=== PATIENT | female | born 1995 | race Caucasian/White ===

== ENCOUNTER 2023-11-04 15:50 | Emergency (ER) | payer OTHER, SELFPAY ==
[2023-11-04 15:55] VITALS: BP 132/90; PULSE 92; TEMP 36.8; O2SAT 98
--- NOTE | 2023-11-04 16:13 | ED.LOWEXI1 ---
Documented by User: VALARIE Baig 11/04/23 16:19 HPI HPI - Extremity Injury (Lower) General Chief Complaint: Extremity Injury, Lower Stated Complaint: lower extremity injury Time Seen by Provider: 11/04/23 15:51 Source: patient Mode of arrival: walk-in Limitations: no limitations History of Present Illness HPI Narrative: Patient is a 28-year-old female who presents to the emergency department for right foot and ankle injury that occurred during the [place]. She states she went down several stairs outside her home, and twisted her right foot. She complains of pain over the dorsal lateral aspect of the right foot into the ankle. She came directly to the emergency department. No medications taken prior to arrival. She denies any concern for . She had no other associated injuries. Related Data Previous Rx's ?Medication ?Instructions ?Recorded naproxen sodium 550 mg tablet 550 mg PO BID PRN pain #10 tabs 11/04/23 Allergies Allergy/AdvReac Type Severity Reaction Status Date / Time No Known Drug Allergies Allergy Verified 11/04/23 15:58 Opioid HPI Opioid Management Most Recent Pain and Opioid Data: Last Pain Scale 7 11/04/23 16:17 Last MAR Pain Assessment 11/04/23 16:17 Review of Systems ROS Constitutional Denies: fever or chills Ears, nose, mouth, and throat Denies: throat pain or nasal congestion Cardiovascular Denies: chest pain Respiratory Denies: shortness of breath or cough Gastrointestinal Denies: nausea or vomiting Musculoskeletal Denies: back pain Integumentary/Breast Denies: rash Neurological Denies: headache Hematologic/Lymphatic Denies: easy bruising or easy bleeding Exam Narrative Exam Narrative: Gen.: Awake, alert, in no distress Head: Normocephalic, atraumatic ENT: Moist mucous membranes Respiratory: No respiratory distress Extremities: Moves extremities equally, No swelling, ecchymosis or obvious deformity noted of the foot or ankle. Diffuse tenderness of the right lateral malleolus and right lateral foot. Limited flexion and extension of the toes due to pain. 2+ left DP pulse. Psych: Normal mood and affect Neuro: No focal neuro deficit Skin: Warm, dry, intact Constitutional Vital Signs, click to edit/add: Last Vital Signs Temp 98.2 F 11/04/23 15:55 Pulse 92 H 11/04/23 15:55 Resp 18 11/04/23 15:55 BP 132/90 11/04/23 15:55 Pulse Ox 98 11/04/23 15:55 O2 Del Method Room Air 11/04/23 15:55 Course Vital Signs Vital signs: Vital Signs Temperature 98.2 F 11/04/23 15:55 Pulse Rate 92 H 11/04/23 15:55 Respiratory Rate 18 11/04/23 15:55 Blood Pressure 132/90 11/04/23 15:55 Pulse Oximetry 98 11/04/23 15:55 Oxygen Delivery Method Room Air 11/04/23 15:55 Temperature 98.2 F 11/04/23 15:55 Pulse Rate 92 H 11/04/23 15:55 Respiratory Rate 18 11/04/23 15:55 Blood Pressure 132/90 11/04/23 15:55 Pulse Oximetry 98 11/04/23 15:55 Oxygen Delivery Method Room Air 11/04/23 15:55 MDM - Extremity Injury (Lower) MDM Narrative Medical decision making narrative: Raise of the right foot and ankle without acute process or fracture or dislocation. Patient placed in an Favio wrap, postop shoe and discharged home with anti-inflammatories. She is neurovascularly intact. Rest, ice, elevate.Follow-up with PCP and return to the ER if symptoms change or worsen Medical Records Attestation: I reviewed the patient's medical records. Imaging Data XR foot: Attestation: I personally reviewed and interpreted this imaging study as follows: (NAD) Discharge Plan Discharge Stand Alone Forms: Portal Instructions Chief Complaint: Extremity Injury, Lower Clinical Impression: Right foot sprain Patient Disposition: Home, Self-Care Time of Disposition Decision: 16:18 Condition: Good Mode of Transportation: Private Vehicle Prescriptions / Home Meds: New naproxen sodium 550 mg tablet 550 mg PO BID PRN (Reason: pain) Qty: 10 0RF Print Language: Puerto Rican Instructions: Foot Sprain (ED) Referrals: Physician,Non-Staff, MD [Primary Care Provider] - 1 week Discharge Date/Time: 11/04/23 16:34 Documented by User: Vince Padron 11/04/23 18:15 HPI HPI - Extremity Injury (Lower) General Chief Complaint: Extremity Injury, Lower Stated Complaint: lower extremity injury Time Seen by Provider: 11/04/23 15:51 Related Data Previous Rx's ?Medication ?Instructions ?Recorded naproxen sodium 550 mg tablet 550 mg PO BID PRN pain #10 tabs 11/04/23 Allergies Allergy/AdvReac Type Severity Reaction Status Date / Time No Known Drug Allergies Allergy Verified 11/04/23 15:58 Opioid HPI Opioid Management Most Recent Pain and Opioid Data: Last Pain Scale 7 11/04/23 16:17 Last MAR Pain Assessment 11/04/23 16:17 Exam Constitutional Vital Signs, click to edit/add: Last Vital Signs Temp 98.2 F 11/04/23 15:55 Pulse 92 H 11/04/23 15:55 Resp 18 11/04/23 15:55 BP 132/90 11/04/23 15:55 Pulse Ox 98 11/04/23 15:55 O2 Del Method Room Air 11/04/23 15:55 Course Vital Signs Vital signs: Vital Signs Temperature 98.2 F 11/04/23 15:55 Pulse Rate 92 H 11/04/23 15:55 Respiratory Rate 18 11/04/23 15:55 Blood Pressure 132/90 11/04/23 15:55 Pulse Oximetry 98 11/04/23 15:55 Oxygen Delivery Method Room Air 11/04/23 15:55 Temperature 98.2 F 11/04/23 15:55 Pulse Rate 92 H 11/04/23 15:55 Respiratory Rate 18 11/04/23 15:55 Blood Pressure 132/90 11/04/23 15:55 Pulse Oximetry 98 11/04/23 15:55 Oxygen Delivery Method Room Air 11/04/23 15:55 MDM - Extremity Injury (Lower) MDM Narrative Medical decision making narrative: Raise of the right foot and ankle without acute process or fracture or dislocation. Patient placed in an Favio wrap, postop shoe and discharged home with anti-inflammatories. She is neurovascularly intact. Rest, ice, elevate.Follow-up with PCP and return to the ER if symptoms change or worsen For this patient encounter I reviewed the mid-level provider?s documentation, medical decision-making and treatment plan, and I personally spent time with this patient. Shared APC visit, physician attestation: Snd-fnyr-ol-face: The visit was performed by both a physician and an APC. I performed all aspects of MDM as documented. - DO Wanda Discharge Plan Discharge Stand Alone Forms: Portal Instructions Chief Complaint: Extremity Injury, Lower Clinical Impression: Right foot sprain Patient Disposition: Home, Self-Care Time of Disposition Decision: 16:18 Condition: Good Mode of Transportation: Private Vehicle Prescriptions / Home Meds: New naproxen sodium 550 mg tablet 550 mg PO BID PRN (Reason: pain) Qty: 10 0RF Print Language: Puerto Rican Instructions: Foot Sprain (ED) Referrals: Physician,Non-Staff, MD [Primary Care Provider] - 1 week Discharge Date/Time: 11/04/23 16:34
--- NOTE | 2023-11-04 16:16 | XR_ITS ---
The [address] [address] Patient Name: MARISA SHANE MRN: [id number] date: 1995 Sex: F Assigned Patient Location: ER Current Patient Location: ED.MAIN Accession/Order Number: [id number] Exam Date: 11/04/2023 16:10 Report Date: 11/04/2023 16:31 At the request of: CAMRYN DOWNS Procedure: XR foot RT min 3V EXAM: XR foot RT min 3V, XR ankle RT min 3V HISTORY: fall COMPARISON: None. TECHNIQUE: 3 views of the right foot and ankle FINDINGS: There is no acute fracture or dislocation. The talar dome is congruent. Ankle mortise is normal. Soft tissues are unremarkable. XR/XR foot RT min 3V IMPRESSION: No acute process Electronically authenticated by: ARABELLA LARA Date: 11/04/2023 16:31
--- NOTE | 2023-11-04 16:16 | XR_ITS ---
The [address] [address] Patient Name: MARISA SHANE MRN: [id number] date: 1995 Sex: F Assigned Patient Location: ER Current Patient Location: ED.MAIN Accession/Order Number: [id number] Exam Date: 11/04/2023 16:10 Report Date: 11/04/2023 16:31 At the request of: CAMRYN DOWNS Procedure: XR ankle RT min 3V EXAM: XR foot RT min 3V, XR ankle RT min 3V HISTORY: fall COMPARISON: None. TECHNIQUE: 3 views of the right foot and ankle FINDINGS: There is no acute fracture or dislocation. The talar dome is congruent. Ankle mortise is normal. Soft tissues are unremarkable. XR/XR ankle RT min 3V IMPRESSION: No acute process Electronically authenticated by: ARABELLA LARA Date: 11/04/2023 16:31
[2023-11-04] MEDS: HYDROCODONE/ACET 5-325 MG TABLET 1 TAB PO (16:17)
== END 2023-11-04 16:34 | disposition home or self-care (01) ==
PROVIDERS: Emergency Provider Emergency Medicine
DX: S93.601A Unspecified sprain of right foot, initial encounter (principal); X50.9XXA Other and unspecified overexertion or strenuous movements or postures, initial encounter
CPT/HCPCS: 73610; 73630; 99284

== ENCOUNTER 2024-03-08 00:44 | Emergency (ER) | payer OTHER, SELFPAY ==
[2024-03-08 00:47] VITALS: BP 145/98; PULSE 122; TEMP 36.6; O2SAT 100; BMI 25.8
--- NOTE | 2024-03-08 01:00 | ED.HEATRA1 ---
HPI HPI - Head Injury General Chief complaint: Head Injury Stated complaint: head injury Time Seen by Provider: 03/08/24 00:51 Source: patient Mode of arrival: walk-in Limitations: no limitations History of Present Illness HPI Narrative: patient states she was running after her dog in the dark and fell striking the left side of her face and mouth. Denies LOC. Complains of left ear pain and headache. No loose teeth. Denies neck pain or extremity numbness. Denies injury elsewhere. No vision complaint or dizziness Related Data Home Medications ?Medication ?Instructions ?Recorded ?Confirmed No Known Home Medications 03/08/24 03/08/24 Allergies Allergy/AdvReac Type Severity Reaction Status Date / Time No Known Drug Allergies Allergy Verified 03/08/24 00:47 Opioid HPI Opioid Management Most Recent Pain and Opioid Data: Last Pain Scale 7 11/04/23 16:17 Review of Systems ROS Status of ROS 10 or more systems reviewed and unremarkable except as noted in history and below Exam Constitutional Vital Signs, click to edit/add: Last Vital Signs Temp 98 F 03/08/24 00:47 Pulse 116 H 03/08/24 01:06 Resp 16 03/08/24 00:47 BP 145/98 H 03/08/24 00:47 Pulse Ox 100 03/08/24 01:06 O2 Del Method Room Air 03/08/24 00:47 Common normals: no apparent distress, average body habitus, oriented x3, no limitations, healthy appearing, alert and well nourished [facility] Head images: 1. faint contusion . no swelling Nose: external nose normal Eye Common normals: PERRL, EOMs intact bilaterally and conjunctivae normal Neck & C-Spine Common normals: full ROM Respiratory Common normals: normal respiratory effort, no retractions, no use of accessory muscles and clear to auscultation bilaterally Cardio Common normals: regular rate, regular rhythm, S1 normal heart sound and S2 normal heart sound GI Common normals: Normal to inspection, nondistended, normoactive bowel sounds present, soft to palpation and non-tender Extremity Common normals: normal to inspection and full ROM Neuro Common normals: oriented x3, CN's II-XII intact bilaterally, moves all extremities and no focal motor deficits Psych Appearance: grossly normal Course Vital Signs Vital signs: Vital Signs Temperature 98 F 03/08/24 00:47 Pulse Rate 122 H 03/08/24 00:47 Respiratory Rate 16 03/08/24 00:47 Blood Pressure 145/98 H 03/08/24 00:47 Pulse Oximetry 100 03/08/24 00:47 Oxygen Delivery Method Room Air 03/08/24 00:47 Temperature 98 F 03/08/24 00:47 Pulse Rate 116 H 03/08/24 01:06 Respiratory Rate 16 03/08/24 00:47 Blood Pressure 145/98 H 03/08/24 00:47 Pulse Oximetry 100 03/08/24 01:06 Oxygen Delivery Method Room Air 03/08/24 00:47 MDM - Head Injury MDM Narrative Medical decision making narrative: patient fell chasing after her dog and struck the left side of her face. No LOC. no evidence of facial swelling. CTs neg. Patient informed of the above and the working diagnosis of facial contusion and head injury. Patient discharged home Discharge Plan Discharge Stand Alone Forms: Portal Instructions Chief Complaint: Head Injury Clinical Impression: Closed head injury, Contusion of face Patient Disposition: Home, Self-Care Mode of Transportation: Private Vehicle Prescriptions / Home Meds: No Action No Known Home Medications Print Language: Faroese Instructions: Head Injury (ED), Facial Contusion (ED) Additional Instructions: use ibuprofen for pain. follow up with your family doctor next week Referrals: Physician,Non-Staff, MD [Primary Care Provider] - 1 week
--- NOTE | 2024-03-08 01:03 | CT_ITS ---
The [address] [address] Patient Name: MARISA SHANE MRN: [id number] date: 1995 Sex: F Assigned Patient Location: ER Current Patient Location: ER Accession/Order Number: [id number] Exam Date: 03/08/2024 01:10 Report Date: 03/08/2024 02:24 At the request of: DANNA PLATT Procedure: CT head/brain wo con CT OF THE BRAIN WITHOUT CONTRAST: 03/08/2024 1:10 AM EDT HISTORY: Injury. Facial injury. Not down by dog. Left jaw and cheek pain. Left ear pain. TECHNIQUE: Contiguous axially collimated images were obtained through the intracranial compartment, from the vertex through the foramen magnum. Coronal and Sagittal reformatted images were prepared on a separate workstation and reviewed on the PACS for anatomic correlation. No contrast was administered. This CT exam was performed using one or more of the following dose reduction techniques: Automated exposure control, adjustment of the mA and/or kV according to patient size, or use of iterative reconstruction technique. Thin section coronal and sagittal images were reconstructed from the axial data set. All images were reviewed and interpreted. COMPARISON: CT maxillofacial and cervical spine studies obtained the same day dictated separately. Please see these reports. FINDINGS: There is no intracranial hemorrhage or abnormal extra-axial fluid collection. To the extent of evaluated with noncontrast technique, there is no mass lesion appreciated. There is no mass-effect or shift of midline structures. The ventricles and CSF spaces are age appropriate. There is no evidence of hydrocephalus. There is no effacement of the basal cisterns. Leyva white matter differentiation is well preserved throughout, without evidence of acute ischemia. There is no significant leukomalacia. The basal ganglia and thalami are unremarkable. The posterior fossa, brain stem, and fourth ventricle are normal. There is no tonsillar ectopy. The calvarium is intact, without destructive lesion or depressed fracture. Bilateral temporomandibular joints are well-maintained. The mastoid air cells are well-aerated. The paranasal sinuses are normally aerated. CT/CT head/brain wo con IMPRESSION: No acute or significant intracranial pathology. Electronically authenticated by: KALPANA ROCHA Date: 03/08/2024 02:24
--- NOTE | 2024-03-08 01:03 | CT_ITS ---
The [address] [address] Patient Name: MARISA SHANE MRN: [id number] date: 1995 Sex: F Assigned Patient Location: ER Current Patient Location: ER Accession/Order Number: [id number] Exam Date: 03/08/2024 01:10 Report Date: 03/08/2024 02:28 At the request of: DANNA PLATT Procedure: CT cervical spine wo con CT CERVICAL SPINE WITHOUT : 03/08/2024 1:10 AM EDT HISTORY: Neck pain. TECHNIQUE: Thin section axial CT images were obtained from the foramen magnum to the T1 vertebral body. Thin section sagittal and coronal reconstructed images were performed from the axial data set. In accordance with CT protocols and the ALARA principle, radiation dose reduction techniques were utilized for this examination. All images were reviewed and interpreted. Dose reduction techniques were achieved by using automated exposure control and/or adjustment of mA and/or kV according to patient size and/or use of iterative reconstruction technique. CONTRAST: None. COMPARISON: None. FINDINGS: There is no fracture or vertebral body height loss. There is no destructive osseous lesion. Normal anatomic alignment is maintained. There is no spondylolisthesis. There is no significant degenerative change. Osseous mineralization is within normal limits. The paraspinal soft tissues are unremarkable. There is no prevertebral soft tissue swelling. Lung apices are clear. At C5-6, there is mild annular disc bulging with small broad-based central left paracentral disc protrusion suggested. Mild effacement of ventral thecal sac without significant canal narrowing. Only mild left paracentral canal narrowing. Disc height is preserved. No neural foraminal stenosis. Remaining disc levels are normal. Remaining joints are normal. CT/CT cervical spine wo con IMPRESSION: 1. No fracture or malalignment. 2. C5-6 disc bulge with small central left paracentral disc protrusion. See above. Electronically authenticated by: KALPANA ROCHA Date: 03/08/2024 02:28
--- NOTE | 2024-03-08 01:03 | CT_ITS ---
The [address] [address] Patient Name: MARISA SHANE MRN: [id number] date: 1995 Sex: F Assigned Patient Location: ER Current Patient Location: ER Accession/Order Number: [id number] Exam Date: 03/08/2024 01:10 Report Date: 03/08/2024 02:26 At the request of: DANNA PLATT Procedure: CT facial bones wo con EXAM: CT facial bones wo con HISTORY: injury COMPARISON: None. TECHNIQUE: Axial scans obtained through the orbits and facial bones with coronal and sagittal reformatted images. Dose reduction techniques were achieved by using automated exposure control and/or adjustment of mA and/or kV according to patient size and/or use of iterative reconstruction technique. FINDINGS: Normal osseous structures. No fractures are identified of the orbits or facial bones. Intact nasal bones and nasal sinus septum without acute fracture. There is some chronic nasal septal deviation to the right of midline from old injury. Intact zygomatic arches and pterygoid plates and skull base. Adequate bone mineralization. No lytic or blastic lesion. Bilateral temporomandibular joints are intact and normal. The imaged upper cervical spine is unremarkable and normal skull base. Normal maxilla and mandible. The paranasal sinuses and mastoid air cells are clear. Orbital structures and contents are normal. Included intracranial structures are normal. CT/CT facial bones wo con IMPRESSION: 1. No acute bone or joint findings. 2. Chronic nasal septal deviation involving the anterior bony nasal septum to the right of midline which appears related to old injury. No acute nasal bone or nasal septal fracture. 3. No acute joint findings. Electronically authenticated by: KALPANA ROCHA Date: 03/08/2024 02:26
[2024-03-08 01:06] VITALS: PULSE 116; O2SAT 100
[2024-03-08] MEDS: IBUPROFEN 600 MG TABLET PO (01:57)
[2024-03-08 02:52] VITALS: BP 116/78; PULSE 99; O2SAT 99
== END 2024-03-08 02:54 | disposition home or self-care (01) ==
PROVIDERS: Emergency Provider Internal Medicine
DX: S09.8XXA Other specified injuries of head, initial encounter (principal); S00.83XA Contusion of other part of head, initial encounter; W19.XXXA Unspecified fall, initial encounter
CPT/HCPCS: 70450; 70486; 72125; 99284

== ENCOUNTER 2025-07-13 08:58 | Emergency (ER) | payer OTHER, SELFPAY ==
[2025-07-13 09:02] VITALS: BP 166/68; PULSE 99; TEMP 36.9; O2SAT 96; BMI 27.5
--- NOTE | 2025-07-13 09:24 | XR_ITS ---
The [place] [id number] Patient Name: MARISA SHANE MRN: [id number] date: 1995 Sex: F Assigned Patient Location: ER Current Patient Location: ED.MAIN Accession/Order Number: [id number] Exam Date: 07/13/2025 09:18 Report Date: 07/13/2025 10:00 At the request of: CAREN KELLY MD Procedure: XR foot LT min 3V LEFT FOOT - 3 views CLINICAL DATA: Pain at the left first toe following injury last night. COMPARISON: None AP, lateral and oblique views were obtained. There is no obvious acute fracture or dislocation. There are no significant soft tissue abnormalities. XR/XR foot LT min 3V IMPRESSION: NO ACUTE BONY INJURY. Impression dictated by: Mary Little M.D. 07/13/2025 10:00 AM Dictation Location: [facility] [facility] Electronically authenticated by: [id number] Y Date: 07/13/2025 10:00
--- OUTSIDE RECORDS SUMMARY | 2025-07-13 09:36 | XMS_ITS | Clinical Summary ---
Author Organization [employer] [facility] Address [id number] [address] [place] [address] Care Team Providers Care Hvac Design Mechanical Engineer Name Role Phone Unavailable Primary Care Provider Unavailabl e Allergies No known active allergies Medications No known medications Social History Tobacco UseTypesPacks/DayYears UsedDateSmoking Tobacco: NeverSmokeless Tobacco: Never Tobacco Cessation:Counseling Given: Not Answered Alcohol UseStandard Drinks/WeekCommentsYes0 (1 standard drink = 0.6 oz pure alcohol)Hunger ScreeningAnswerDate RecordedWithin the past 12 months we worried whether our food would run out before we got money to buy more.Never True 02/21/2025Within the past 12 months the food we bought just didn't last and we didn't have money to get more.Never True02/21/2025CommentsUnknownSex and Gender InformationValueDate RecordedSex Assigned at BirthNot on fileLegal Sex Szylww9902/21/2025 4:01 AM EDTGender IdentityNot on fileSexual OrientationNot on file Last Filed Vital Signs Vital SignReadingTime TakenCommentsBlood Sjnkusaf292/77002/21/2025 4:15 AM EDT Ajdzu423602/21/2025 4:15 AM XOMTvgkjbwgnoh35 ??C (98.6 ??F)02/21/2025 4:15 AM EDT Respiratory Sltx691502/21/2025 4:15 AM EDTOxygen Hbwjokgdni52%02/21/2025 4:15 AM EDTInhaled Oxygen Concentration--Dwxeev08.4 kg (175 lb)02/21/2025 4:15 AM EDT Xmekzy925.6 cm (5' 6 )02/21/2025 4:15 AM EDTBody Mass Index28.25002/21/2025 4:15 AM EDT Plan of Treatment Not on file Medical Devices Not on file
--- OUTSIDE RECORDS SUMMARY | 2025-07-13 09:36 | XMS_ITS | Clinical Summary ---
Author Organization [facility] Address [address] [place] [address] Care Team Providers Care Digital Pre Press Operator Name Role Phone Unavailable Primary Care Provider Unavailabl e Social History Tobacco UseTypesPacks/DayYears UsedDateSmoking Tobacco: Never Assessed CommentsUnknownSex and Gender InformationValueDate RecordedSex Assigned at Not on fileLegal JopTfokzp17/15/2023 6:58 PM EDTGender IdentityNot on fileSexual OrientationNot on file Plan of Treatment Not on file
--- NOTE | 2025-07-13 09:46 | ED_ITS ---
HPI HPI - Extremity Injury (Lower) General Chief Complaint: Extremity Injury, Lower Stated Complaint: L FOOT INJURY Time Seen by Provider: 07/13/25 09:12 Source: patient Mode of arrival: walk-in History of Present Illness HPI Narrative: The patient is coming to the ER with injury to the left big toe yesterday while she was in the kitchen, the patient did stump her toe with the kitchen table She mentioned that she had been having pain since then and she is able to walk but only trying to put the lateral aspect of her foot on the floor No other complaints Related Data Previous Rx's ?Medication ?Instructions ?Recorded diclofenac sodium 75 mg 75 mg PO BID PRN pain #20 ta bs 07/13/25 tablet,delayed release Allergies Allergy/AdvReac Type Severity Reaction Status Date / Time No Known Drug Allergies Allergy Verified 07/13/25 09:01 Opioid HPI Opioid Management Most Recent Pain and Opioid Data: Last Pain Scale 8 Today, 09:07 Review of Systems ROS Status of ROS 10 or more systems reviewed and unremark able except as noted in history and below PFSH PFSH Social History Little interest or pleasure in doing things: not at all Feeling down, depressed, or hopeless: not at all Exam Narrative Exam Narrative: Nurses notes and vital signs reviewed and patient is not hypoxic. General: Well-appearing and in no apparent distress. Skin: Warm, dry, no pallor noted. foot : Left foot examination showed that the patient had tenderness at the metatarsal phalangeal joint of the first toe there is no deformity and there is no ecchymosis there is some mild swelling, no warmth and no redness, normal capillary refill and normal range of movement in the toes Neurological: A&O x4. No cranial nerve dysfunction observed. No truncal ataxia. Moves all extremities. Sensation intact. Psychiatric: Cooperative and interactive. Normal mood and affect. Constitutional Vital Signs, click to edit/add: Last Vital Signs Temp 98.4 F 07/13/25 09:02 Pulse 99 H 07/13/25 09:02 BP 166/68 H 07/13/25 09:02 Pulse Ox 96 07/13/25 09:02 O2 Del Method Room Air 07/13/25 09:02 Course Vital Signs Vital signs: Vital Signs Temperature 98.4 F 07/13/25 09:02 Pulse Rate 99 H 07/13/25 09:02 Blood Pressure 166/68 H 07/13/25 09:02 Pulse Oximetry 96 07/13/25 09:02 Oxygen Delivery Method Room Air 07/13/25 09:02 Temperature 98.4 F 07/13/25 09:02 Pulse Rate 99 H 07/13/25 09:02 Blood Pressure 166/68 H 07/13/25 09:02 Pulse Oximetry 96 07/13/25 09:02 Oxygen Delivery Method Room Air 07/13/25 09:02 MDM - Extremity Injury (Lower) MDM Narrative Medical decision making narrative: X-ray of the left foot showed no acute pathology Right now the patient be treated for possible contusion with Favio wrap as well as postop shoes and Voltaren as needed for pain Referred to podiatry as outpatient if needed in addition to elevation and rest The patient to follow-up with the primary care within 2 to 3 days and to come back to the ER in case of any worsening of the current symptoms or any new symptoms or concerns Discharge Plan Discharge Chief Complaint: Extremity Injury, Lower Clinical Impression: Contusion of great toe, left Patient Disposition: Home, Self-Care Time of Disposition Decision: 09:51 Condition: Good Prescriptions / Home Meds: New diclofenac sodium 75 mg tablet,delayed release (DR/EC) 75 mg PO BID PRN (Reason: pain) Qty: 20 0RF Print Language: Kinyarwanda Instructions: Foot Contusion (ED) Referrals: Physician,Non-Staff, MD [Primary Care Provider] - 1 week Lopez Albrecht DPM [Physician, Podiatry] - 1 week Discharge Date/Time: 07/13/25 10:23
[2025-07-13] MEDS: KETOROLAC TROMETHAMINE 30 MG/ML VIAL IM (10:12)
== END 2025-07-13 10:23 | disposition home or self-care (01) ==
PROVIDERS: Emergency Provider Emergency Medicine
DX: S90.112A Contusion of left great toe without damage to nail, initial encounter (principal); W22.03XA Walked into furniture, initial encounter
CPT/HCPCS: 73630; 96372; 99284; J1885